=== PATIENT | female | born 1945 | race Caucasian/White ===

== ENCOUNTER → 2018-04-29 | Outpatient (CLI) | payer MEDICARE, BC ==
--- NOTE | 2018-04-29 10:33 | RADIOLOGY IMAGING REPORT ---
FACILITY: [facility] PATIENT NAME: Marybeth Mckeon : 1945 MR: [id number] V: [id number] EXAM DATE: ORDERING PHYSICIAN: HERNAN UMANZOR TECHNOLOGIST: Location: [facility] [place] Patient: Marybeth Mckeon : 1945 Visit/Account:[id number] Date of Sevice: 04/29/2018 DEXA Scan Clinical history: Postmenopausal osteoporosis. Comparison: DEXA scan from 04/18/2017. LUMBAR SPINE: The bone mineral density (BMD) measured from L1-L4 correlates with a Z-score of 0.3 and a T-score of -1.5 which is osteopenia as defined by the World Health Organization. The corresponding risk of frac ture in the lumbar spine is three times increased compared with a young adult reference population. This value has decrease by 0.2 % since the prior study. More than 5% change is considered significan t. HIP: Bone mineral density (BMD) measured in the LEFT total hip region correlates with a Z-score -0.3 and a T-score of -2 which is osteopenia as defined by the World Health Organization. The corresponding ri sk of fracture in the hip is 4 times increased compared to a young adult reference population. This v alue has decreased by 0.7 % since the prior study. More than 5% change is considered significant. T score left femoral neck -2.6 Bone mineral density (BMD) measured in the Femoral Neck region measures 0.678 g/cm?. IMPRESSION: 1. Lumbar spine: Osteopenia. There has been 0.2% decrease in the bone mineral density since the pre vious exam. 2. Left Total Hip: Osteopenia. There has been 0.7% decrease in the bone mineral density since the p revious exam. 3. Femoral Neck: Bone Mineral Density is 0.678 g/cm? The next DEXA scan of this patient should include the following sites: L1-L4 and the left hip. FRAX? WHO Fracture Risk Assessment Tool link: <http://www.shef.ac.uk/FRAX/tool.jsp?locationValue=9> PLEASE NOTE: 1) The World Health Organization defines low BMD as follows: T-score Normal > -1 Osteopenia < -1 and > -2.5 Osteoporosis < -2.5 without fractures Established osteoporosis < -2.5 with fractures 2) In general, you may wish to consider: Diagnosis Treatment Follow-up DEXA Normal BMD Prevention 2-3 years Osteopenia Prevention/therapy 1-2 years Osteoporosis Therapy Yearly 3) Fracture risk estimated from the T-score is more accurate for vertebral fractures (often spontane ous) than for hip fractures. Report Dictated By: Leah Velasquez MD at 04/29/2018 10:27 AM Report E-Signed By: Leah Velasquez MD at 04/29/2018 10:29 AM WSN:[email or web address]
--- NOTE | 2018-04-30 09:27 | RADIOLOGY IMAGING REPORT ---
FACILITY: [facility] PATIENT NAME: YUVAL JOHNSON : [id number] MR: [id number] V: [id number] EXAM DATE: [id number] ORDERING PHYSICIAN: HERNAN UMANZOR TECHNOLOGIST: Sarah Erickson PROCEDURE:BILATERAL DIGITAL SCREENING MAMMOGRAM WITH CAD ASSISTED INTERPRETATION & 3D TOMOSYNTHESIS COMPARISON:Prior mammograms 04/18/17, 04/17/16, 04/03/16, 03/31/14, 03/20/12. INDICATIONS:SCREENING FINDINGS: Moderately dense heterogeneous fibroglandular tissue is seen throughout the breasts. The parenchymal pattern has remained stable allowing for difference in mammographic technique & patient positioning. There is no evidence of malignant appearing mass, malignant appearing calcifications or other secondary sign of malignancy in either breast. DIAGNOSTIC CATEGORY 1--NEGATIVE. RECOMMENDATIONS: ROUTINE MAMMOGRAM AND CLINICAL EVALUATION. IMPRESSION: BIRADS 1: Negative. No significant abnormality is seen. Dictated by: Leah Velasquez M.D. on 04/29/2018 at 16:45 Transcribed by: REGINA on 04/30/2018 at 8:20 Approved by: Leah Velasquez M.D. on 04/30/2018 at 9:26 [facility]
== END ==
LOC: MAMO 00:54
PROVIDERS: ATTEND Nurse Practitioner Family
DX: Z12.31 Encounter for screening mammogram for malignant neoplasm of breast (principal); M85.80 Other specified disorders of bone density and structure, unspecified site
CPT/HCPCS: 77063; 77067; 77080